=== PATIENT | male | born 1985 | race Caucasian/White ===

== ENCOUNTER 2019-10-17 01:32 | Emergency (ER) | payer BC ==
[~2019-10-17] VITALS: Ht 188 cm; Wt 118.0 kg
[2019-10-17 01:35] VITALS: BP 152/88
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
[2019-10-17] MEDS ORDERED: METF500T17 PO (02:06)
--- NOTE | 2019-10-17 02:07 | NUR ---
RADIOLOGY AT BEDSIDE
--- NOTE | 2019-10-17 03:07 | NUR ---
REVIEWED DISCHARGE INSTRUCTIONS AND PRESCRIPTION X 1 W/ PT, VERBALIZED UNDERSTANDING TO INFORMATION PROVIDED INCLUDING FOLLOW UP CARE AND RETURN PRECAUTIONS. PT FITTED W/ SLING. PT AMBULATED FROM ED. NO SIGNS OF DISTRESS NOTED.
== END 2019-10-17 03:10 | disposition home or self-care (01) ==
LOC: ED 03:00
DX: S50.12XA Contusion of left forearm, initial encounter (principal); G89.11 Acute pain due to trauma; M25.561 Pain in right knee; E11.9 Type 2 diabetes mellitus without complications; F17.200 Nicotine dependence, unspecified, uncomplicated; Y00.XXXA Assault by blunt object, initial encounter; Y93.89 Activity, other specified; Y92.89 Other specified places as the place of occurrence of the external cause; Y99.8 Other external cause status
CPT/HCPCS: 99283